=== PATIENT | male | born 1945 | race Caucasian/White ===

== ENCOUNTER 2025-06-05 10:09 | Inpatient (IN) ==
[2025-06-05] MEDS ORDERED: IOPAMIDOL 100 ML BOTTLE IV ONE (10:10)
[2025-06-05 11:14] LABS: Basophils # (Auto) 0.01 K/mcL (0.00-0.30); Basophils % (Auto) 0.1 % (0.0-2.0); Eosinophils # (Auto) 0.02 K/mcL (0.00-0.70); Eosinophils % (Auto) 0.2 % (0.0-7.0); Hematocrit 42.7 % (40.1-51.0); Hemoglobin 14.5 g/dL (13.7-17.5); Lymphocytes # (Auto) 0.52 K/mcL (1.50-4.80); Lymphocytes % (Auto) 4.1 % (15.5-49.0); Mean Corpuscular HGB Conc 34.0 g/dL (31.0-36.0); Monocytes # (Auto) 0.88 K/mcL (0.10-0.90); Monocytes % (Auto) 6.9 % (1.0-12.0); Neutrophils % (Auto) 88.1 % (38.0-78.0); Platelet Count 255 K/mcL (140-440); RBC 4.73 M/mcL (4.63-6.08); WBC 12.7 K/mcL (4.5-11.0)
[2025-06-05 11:38] LABS: Bilirubin,Urine NEGATIVE (Negative); Color,Urine YELLOW; Glucose,Urine (UA) NEGATIVE (Negative); Ketones,Urine TRACE mg/dL (Negative); Leukocyte Esterase,Urine NEGATIVE /uL (Negative); PH,Urine 6.0 (5.0-9.0); Protein,Urine 30 mg/dL (Negative); Specific Gravity,Urine 1.020 (1.000-1.035); Urobilinogen,Urine 4.0 mg/dL
[2025-06-05] MEDS: 0.9 % SODIUM CHLORIDE 1,000 ML IV ONE ×2 (11:45→12:46)
[2025-06-05 11:46] LABS: Thyroid Stimulating Hormone 0.62 uIU/mL (0.27-5.01)
[2025-06-05 11:59] LABS: ALT/SGPT 49 U/L (<40); AST/SGOT 44 U/L (<40); Albumin 3.2 gm/dL (3.2-5.2); Albumin/Globulin Ratio 1.0 (1.0-2.3); Alkaline Phosphatase 146 U/L (39-117); Anion Gap 10.0 (8.0-16.0); Bilirubin,Total 0.7 mg/dL (0.1-1.0); Blood Urea Nitrogen 23 mg/dL (8-23); Calcium 8.8 mg/dL (8.6-10.4); Carbon Dioxide 26 mmol/L (22-30); Chloride 99 mmol/L (96-108); Globulin 3.1 gm/dL (2.2-3.7); Glucose 116 mg/dL (70-105); INR 1.0 (0.9-1.1); Potassium 3.8 mmol/L (3.3-5.1); Prothrombin Time 14.1 sec (11.9-14.5); Sodium 135 mmol/L (133-145)
[2025-06-05] MEDS: CEFEPIME 2 GM VIAL IV ONE (13:44)
[2025-06-05] MEDS ORDERED: PROPOFOL 200 MG/20 ML VIAL IV ONE (14:51)
[2025-06-05] MEDS ORDERED: LIDOCAINE 2% PF 5 ML VIAL ONE (14:51)
[2025-06-05] MEDS ORDERED: DEXAMETHASONE 10 MG/ML VIAL ONE (14:51)
[2025-06-05] MEDS ORDERED: ONDANSETRON 4 MG/2 ML VIAL ONE (14:51)
[2025-06-05] MEDS: IOVERSOL 50 ML VIAL IJ ONE (15:17)
[2025-06-05] MEDS ORDERED: ONDANSETRON 4 MG/2 ML VIAL IV PRN ×2 (15:19→16:13)
[2025-06-05] MEDS ORDERED: LACTATED RINGERS 250 ML IV PRN (15:19)
[2025-06-05] MEDS ORDERED: IPRATROPIUM/ALBUTEROL 3 ML AMPUL.NEB NEB PRN (15:19)
[2025-06-05] MEDS ORDERED: NALOXONE HCL 0.4 MG/ML VIAL IV PRN (15:19)
[2025-06-05] MEDS ORDERED: fentaNYL 100 MCG/2 ML VIAL IV PRN (15:19)
[2025-06-05] MEDS ORDERED: MEPERIDINE 25 MG/ML VIAL IV PRN (15:19)
[2025-06-05] MEDS ORDERED: diphenhydrAMINE 50 MG/ML VIAL IV PRN (15:19)
[2025-06-05] MEDS: LIDOCAINE 2% URO-JET 10 ML JEL.PF.APP UR ONE (15:21)
[2025-06-05] MEDS: ACETAMINOPHEN 1,000 MG/100 ML BAG IV ONE (15:45)
[2025-06-05] MEDS ORDERED: SENNOSIDES 1 TABLET PO PRN (16:13)
[2025-06-05] MEDS ORDERED: LACTULOSE 20 GM/30 ML ORAL.SOL PO PRN (16:13)
[2025-06-05] MEDS: 0.9 % SODIUM CHLORIDE 1,000 ML IV SCH (16:18)
[2025-06-05] MEDS: LACTATED RINGERS 1,000 ML IV SCH (16:30)
[2025-06-05] MEDS: cefTRIAXone 2 GM in DEXTROSE 5% IN WATER 50 ML IV SCH (16:40)
[2025-06-05] MEDS: AZITHROMYCIN 500 MG in DEXTROSE 5% IN WATER 250 ML IV SCH (17:18)
[2025-06-05] MEDS: 0.9 % SODIUM CHLORIDE 10 ML SYRINGE IV SCH (21:00)
[2025-06-06 05:59] LABS: Basophils # (Auto) 0.02 K/mcL (0.00-0.30); Basophils % (Auto) 0.1 % (0.0-2.0); Eosinophils # (Auto) 0 K/mcL (0.00-0.70); Eosinophils % (Auto) 0 % (0.0-7.0); Hematocrit 36.1 % (40.1-51.0); Hemoglobin 12.1 g/dL (13.7-17.5); Lymphocytes # (Auto) 0.76 K/mcL (1.50-4.80); Lymphocytes % (Auto) 5.3 % (15.5-49.0); Mean Corpuscular HGB Conc 33.5 g/dL (31.0-36.0); Monocytes # (Auto) 0.58 K/mcL (0.10-0.90); Monocytes % (Auto) 4.1 % (1.0-12.0); Neutrophils % (Auto) 89.7 % (38.0-78.0); Platelet Count 277 K/mcL (140-440); RBC 4.01 M/mcL (4.63-6.08); WBC 14.3 K/mcL (4.5-11.0)
[2025-06-06 06:18] LABS: ALT/SGPT 36 U/L (<40); AST/SGOT 25 U/L (<40); Albumin 2.6 gm/dL (3.2-5.2); Albumin/Globulin Ratio 1.0 (1.0-2.3); Alkaline Phosphatase 116 U/L (39-117); Anion Gap 8.0 (8.0-16.0); Bilirubin,Direct 0.3 mg/dL (<0.3); Bilirubin,Total 0.4 mg/dL (0.1-1.0); Blood Urea Nitrogen 21 mg/dL (8-23); Calcium 8.1 mg/dL (8.6-10.4); Carbon Dioxide 25 mmol/L (22-30); Chloride 103 mmol/L (96-108); Globulin 2.6 gm/dL (2.2-3.7); Glucose 127 mg/dL (70-105); Phosphorous 3.2 mg/dL (2.5-4.5); Potassium 3.7 mmol/L (3.3-5.1); Sodium 136 mmol/L (133-145); Triglycerides 81 mg/dL (<150); Uric Acid 3.9 mg/dL (2.5-8.0)
[2025-06-06] MEDS: ENOXAPARIN 40 MG/0.4 ML SYRINGE SQ SCH (08:27)
[2025-06-06] MEDS: ACETAMINOPHEN 325 MG TABLET PO PRN (08:38)
[2025-06-06] MEDS ORDERED: VANCOMYCIN PER PHARMACY IV SCH (13:45)
[2025-06-06] MEDS: VANCOMYCIN 1,500 MG in 0.9 % SODIUM CHLORIDE 500 ML IV SCH (14:39)
[2025-06-06] MEDS: HEPARIN 500 UNIT/5 ML SYRINGE IV ONE (21:13)
[2025-06-07 06:08] LABS: Basophils # (Auto) 0.03 K/mcL (0.00-0.30); Basophils % (Auto) 0.3 % (0.0-2.0); Eosinophils # (Auto) 0.09 K/mcL (0.00-0.70); Eosinophils % (Auto) 0.8 % (0.0-7.0); Hematocrit 34.4 % (40.1-51.0); Hemoglobin 11.9 g/dL (13.7-17.5); Lymphocytes # (Auto) 1.72 K/mcL (1.50-4.80); Lymphocytes % (Auto) 14.9 % (15.5-49.0); Mean Corpuscular HGB Conc 34.6 g/dL (31.0-36.0); Monocytes # (Auto) 1.34 K/mcL (0.10-0.90); Monocytes % (Auto) 11.6 % (1.0-12.0); Neutrophils % (Auto) 71.4 % (38.0-78.0); Platelet Count 331 K/mcL (140-440); RBC 3.65 M/mcL (4.63-6.08)
[2025-06-07 06:23] LABS: ALT/SGPT 49 U/L (<40); AST/SGOT 38 U/L (<40); Albumin 2.6 gm/dL (3.2-5.2); Albumin/Globulin Ratio 1.1 (1.0-2.3); Alkaline Phosphatase 106 U/L (39-117); Anion Gap 7.0 (8.0-16.0); Bilirubin,Direct 0.2 mg/dL (<0.3); Bilirubin,Total 0.3 mg/dL (0.1-1.0); Blood Urea Nitrogen 29 mg/dL (8-23); Calcium 8.3 mg/dL (8.6-10.4); Carbon Dioxide 26 mmol/L (22-30); Chloride 105 mmol/L (96-108); Globulin 2.4 gm/dL (2.2-3.7); Glucose 85 mg/dL (70-105); Phosphorous 2.6 mg/dL (2.5-4.5); Potassium 3.3 mmol/L (3.3-5.1); Sodium 138 mmol/L (133-145); Triglycerides 92 mg/dL (<150); Uric Acid 4.4 mg/dL (2.5-8.0)
[2025-06-07 07:29] LABS: WBC 11.6 K/mcL (4.5-11.0)
[2025-06-07] MEDS: SERTRALINE 50 MG TABLET PO SCH (09:08)
[2025-06-09 06:07] LABS: Basophils # (Auto) 0.03 K/mcL (0.00-0.30); Basophils % (Auto) 0.3 % (0.0-2.0); Eosinophils # (Auto) 0.12 K/mcL (0.00-0.70); Eosinophils % (Auto) 1.2 % (0.0-7.0); Hematocrit 36.3 % (40.1-51.0); Hemoglobin 12.4 g/dL (13.7-17.5); Lymphocytes # (Auto) 1.29 K/mcL (1.50-4.80); Lymphocytes % (Auto) 13.4 % (15.5-49.0); Mean Corpuscular HGB Conc 34.2 g/dL (31.0-36.0); Monocytes # (Auto) 0.82 K/mcL (0.10-0.90); Monocytes % (Auto) 8.5 % (1.0-12.0); Neutrophils % (Auto) 75.5 % (38.0-78.0); Platelet Count 390 K/mcL (140-440); RBC 3.87 M/mcL (4.63-6.08); WBC 9.6 K/mcL (4.5-11.0)
[2025-06-09 06:52] LABS: ALT/SGPT 66 U/L (<40); AST/SGOT 49 U/L (<40); Albumin 2.9 gm/dL (3.2-5.2); Albumin/Globulin Ratio 1.0 (1.0-2.3); Alkaline Phosphatase 103 U/L (39-117); Anion Gap 8.0 (8.0-16.0); Bilirubin,Direct 0.3 mg/dL (<0.3); Bilirubin,Total 0.5 mg/dL (0.1-1.0); Blood Urea Nitrogen 20 mg/dL (8-23); Calcium 8.4 mg/dL (8.6-10.4); Carbon Dioxide 27 mmol/L (22-30); Chloride 104 mmol/L (96-108); Globulin 2.8 gm/dL (2.2-3.7); Glucose 89 mg/dL (70-105); Phosphorous 2.8 mg/dL (2.5-4.5); Potassium 3.6 mmol/L (3.3-5.1); Sodium 139 mmol/L (133-145); Triglycerides 87 mg/dL (<150); Uric Acid 3.5 mg/dL (2.5-8.0)
[2025-06-10 06:32] LABS: Basophils # (Auto) 0.02 K/mcL (0.00-0.30); Basophils % (Auto) 0.2 % (0.0-2.0); Eosinophils # (Auto) 0.14 K/mcL (0.00-0.70); Eosinophils % (Auto) 1.2 % (0.0-7.0); Hematocrit 33.5 % (40.1-51.0); Hemoglobin 11.8 g/dL (13.7-17.5); Lymphocytes # (Auto) 1.13 K/mcL (1.50-4.80); Lymphocytes % (Auto) 9.7 % (15.5-49.0); Mean Corpuscular HGB Conc 35.2 g/dL (31.0-36.0); Monocytes # (Auto) 1.00 K/mcL (0.10-0.90); Monocytes % (Auto) 8.6 % (1.0-12.0); Neutrophils % (Auto) 79.0 % (38.0-78.0); Platelet Count 322 K/mcL (140-440); RBC 3.46 M/mcL (4.63-6.08); WBC 11.7 K/mcL (4.5-11.0)
[2025-06-10 08:50] LABS: ALT/SGPT 71 U/L (<40); AST/SGOT 49 U/L (<40); Albumin 2.7 gm/dL (3.2-5.2); Albumin/Globulin Ratio 0.9 (1.0-2.3); Alkaline Phosphatase 92 U/L (39-117); Anion Gap 8.0 (8.0-16.0); Bilirubin,Direct < 0.2 mg/dL (0-0.3); Bilirubin,Total 0.5 mg/dL (0.1-1.0); Blood Urea Nitrogen 21 mg/dL (8-23); Calcium 8.4 mg/dL (8.6-10.4); Carbon Dioxide 26 mmol/L (22-30); Chloride 104 mmol/L (96-108); Globulin 2.9 gm/dL (2.2-3.7); Glucose 82 mg/dL (70-105); Phosphorous 2.6 mg/dL (2.5-4.5); Potassium 4.3 mmol/L (3.3-5.1); Sodium 138 mmol/L (133-145); Triglycerides 69 mg/dL (<150); Uric Acid 3.2 mg/dL (2.5-8.0)
[2025-06-10] MEDS: VANCOMYCIN 1,000 MG in 0.9 % SODIUM CHLORIDE 250 ML IV SCH (11:19)
[2025-06-11] MEDS ORDERED: ENALAPRILAT 1.25 MG/ML VIAL IV PRN (07:58)
[2025-06-11] MEDS ORDERED: hydrALAZINE 20 MG/ML VIAL IV PRN (07:58)
[2025-06-11 08:45] LABS: Basophils # (Auto) 0.03 K/mcL (0.00-0.30); Basophils % (Auto) 0.3 % (0.0-2.0); Eosinophils # (Auto) 0.11 K/mcL (0.00-0.70); Eosinophils % (Auto) 1.0 % (0.0-7.0); Hematocrit 34.6 % (40.1-51.0); Hemoglobin 11.4 g/dL (13.7-17.5); Lymphocytes # (Auto) 1.02 K/mcL (1.50-4.80); Lymphocytes % (Auto) 9.1 % (15.5-49.0); Mean Corpuscular HGB Conc 32.9 g/dL (31.0-36.0); Monocytes # (Auto) 1.14 K/mcL (0.10-0.90); Monocytes % (Auto) 10.2 % (1.0-12.0); Neutrophils % (Auto) 78.1 % (38.0-78.0); Platelet Count 425 K/mcL (140-440); RBC 3.77 M/mcL (4.63-6.08); WBC 11.2 K/mcL (4.5-11.0)
[2025-06-11 09:05] LABS: ALT/SGPT 54 U/L (<40); AST/SGOT 27 U/L (<40); Albumin 2.8 gm/dL (3.2-5.2); Albumin/Globulin Ratio 1.0 (1.0-2.3); Alkaline Phosphatase 86 U/L (39-117); Anion Gap 5.0 (8.0-16.0); Bilirubin,Direct 0.3 mg/dL (<0.3); Bilirubin,Total 0.6 mg/dL (0.1-1.0); Blood Urea Nitrogen 19 mg/dL (8-23); Calcium 8.3 mg/dL (8.6-10.4); Carbon Dioxide 29 mmol/L (22-30); Chloride 102 mmol/L (96-108); Globulin 2.8 gm/dL (2.2-3.7); Glucose 89 mg/dL (70-105); Phosphorous 2.4 mg/dL (2.5-4.5); Potassium 4.0 mmol/L (3.3-5.1); Sodium 136 mmol/L (133-145); Triglycerides 62 mg/dL (<150); Uric Acid 3.1 mg/dL (2.5-8.0)
== END 2025-06-12 14:25 ==
LOC: ED 10:09 → SUR 14:36 → ICU 16:03 → MEDSUR 06-06 15:36
PROVIDERS: ADMIT Internal Medicine; ATTEND Internal Medicine